=== PATIENT | female | born 1995 | race African-American/Black ===

== ENCOUNTER 2020-09-30 20:07 | Emergency (ER) | payer OTHER, SELFPAY ==
[2020-09-30 21:09] VITALS: BP 114/59; PULSE 68; RESP 16; TEMP 36.7; O2SAT 97; BMI 18.8
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
[2020-09-30] MEDS: Bacitracin Oint 14 GM TUBE 1 APPL TOPICAL (23:38)
== END 2020-09-30 23:55 | disposition home or self-care (01) ==
PROVIDERS: Emergency Provider Student in an Organized Health Care Education/Training Program
DX: S70.312A Abrasion, left thigh, initial encounter (principal); S70.311A Abrasion, right thigh, initial encounter; V28.0XXA Motorcycle driver injured in noncollision transport accident in nontraffic accident, initial encounter; Y93.89 Activity, other specified; Y92.414 Local residential or business street as the place of occurrence of the external cause; Y99.9 Unspecified external cause status
CPT/HCPCS: 99283